=== PATIENT | male | born 1980 | race African-American/Black ===

== ENCOUNTER 2019-02-10 21:52 | Emergency (ER) | payer OTHER ==
[~2019-02-10] VITALS: Ht 185.4 cm; Wt 104.3 kg
[2019-02-10 21:57] VITALS: Ht 185.4 cm; Wt 104.3 kg
[2019-02-11 01:10] VITALS: BP 126/70
== END 2019-02-11 01:10 | disposition home or self-care (01) ==
LOC: ED 21:52
DX: T23.202A Burn of second degree of left hand, unspecified site, initial encounter (principal); X58.XXXA Exposure to other specified factors, initial encounter; Y93.89 Activity, other specified; Y92.89 Other specified places as the place of occurrence of the external cause; Y99.8 Other external cause status